=== PATIENT | female | born 1955 | race Caucasian/White ===

== ENCOUNTER 2023-01-25 09:09 | Day surgery (SDC) | payer OTHER ==
[~2023-01-25] VITALS: Ht 165.1 cm; Wt 83.5 kg
[2023-01-25] MEDS ORDERED: MIDAZOLAM 2 MG/2 ML VIAL ONE (10:10)
[2023-01-25] MEDS ORDERED: fentaNYL citrate 0.05 MG/ML VIAL ONE ×2 (10:10→10:23)
[2023-01-25] MEDS ORDERED: LIDOCAINE 2% 100 MG/5 ML UJET TP ONE ×2 (10:10→10:23)
[2023-01-25] MEDS ORDERED: MIDAZOLAM 5 MG/5 ML VIAL ONE (10:23)
[2023-01-25] MEDS ORDERED: fentaNYL citrate 0.05 MG/ML VIAL IVP ONE (14:00)
[2023-01-25] MEDS ORDERED: MIDAZOLAM 2 MG/2 ML VIAL IVP ONE (14:00)
== END 2023-01-25 13:40 | disposition home or self-care (01) ==
LOC: MDS 09:09 → MMU 09:14 → MDS 13:40
PROVIDERS: ATTEND Internal Medicine Gastroenterology
DX: Z12.11 Encounter for screening for malignant neoplasm of colon (principal); K21.9 Gastro-esophageal reflux disease without esophagitis; K57.30 Diverticulosis of large intestine without perforation or abscess without bleeding; Z90.710 Acquired absence of both cervix and uterus; Z88.1 Allergy status to other antibiotic agents; Z79.899 Other long term (current) drug therapy
CPT/HCPCS: 36415; 43239; 45378; 86677; J2250; J3010